=== PATIENT | female | born 1980 | race Hispanic/Latino ===

== ENCOUNTER 2019-05-24 05:03 | Observation (INO) | payer BC ==
[2019-05-23 10:29] LABS: CLARITY,URINE CLEAR (CLEAR); COLOR,URINE YELLOW (YELLOW); KETONES,URINE NEGATIVE (NEGATIVE); LEUKOCYTE ESTERASE ,URINE NEGATIVE (NEGATIVE); NITRITE,URINE NEGATIVE (NEGATIVE); PROTEIN,URINE DIPSTICK NEGATIVE (NEGATIVE)
[2019-05-23 10:30] LABS: BASOPHILS % 0.8 % (0.0-1.0); BILIRUBIN,URINE NEGATIVE (NEGATIVE); EOSINOPHILS # (AUTO) 0.2 (0.0-0.4); EOSINOPHILS % 3.2 % (0.0-6.0); HEMATOCRIT 40.9 % (34.2-44.1); HEMOGLOBIN 13.8 g/dL (12.0-16.0); LYMPHOCYTES # (AUTO) 1.4 (1.0-3.2); LYMPHOCYTES % 28.4 % (18.0-39.1); MEAN CORPUSCULAR HEMOGLOBIN 30.1 pg (28-32); MEAN CORPUSCULAR HGB CONC 33.7 g/dL (31-35); MEAN CORPUSCULAR VOLUME 89.3 fL (81-99); MONOCYTES # (AUTO) 0.4 (0.2-0.8); MONOCYTES % 7.7 % (4.4-11.3); NEUTROPHILS % 59.7 % (38.7-80.0); PLATELET COUNT 193 x10e3/uL (140-360); RED BLOOD COUNT 4.58 x10e6/uL (3.6-5.1); RED CELL DISTRIBUTION WIDTH 11.4 % (11.7-14.4); URINE UROBILINOGEN 0.2 mg/dL (0.2 - 1)
[2019-05-23 10:47] LABS: ALANINE AMINOTRANSFERASE 11 IU/L (0-55); ALBUMIN 3.9 g/dL (3.5-5.0); ALBUMIN/GLOBULIN RATIO 1.4 (0.8-2.0); ALKALINE PHOSPHATASE 64 IU/L (40-150); ANION GAP 8.9 mmol/L (8-16); BLOOD UREA NITROGEN 8 mg/dL (7-26); BUN/CREATININE RATIO 12 (6-25); CALCIUM 8.9 mg/dL (8.4-10.2); CARBON DIOXIDE 28 mmol/L (22-29); CHLORIDE 105 mmol/L (98-107); CREATININE, SERUM 0.68 mg/dL (0.57-1.11); EST GLOMERULAR FILTRATION RATE > 60 ML/MIN (60-); GLUCOSE 84 mg/dL (74-118); POTASSIUM 3.9 mmol/L (3.5-5.1); SODIUM 138 mmol/L (136-145)
--- NOTE | 2019-05-23 10:47 | Diagnostic Imaging Report ---
EXAMINATION: CHEST 2 VIEWS INDICATION: Pre-operative COMPARISON: None FINDINGS: LINES/TUBES:None LUNGS:The lungs are well-inflated. No focal consolidation or pulmonary edema. PLEURA:No pleural effusion or pneumothorax. MEDIASTINUM:The cardiomediastinal silhouette appears normal in size and shape. BONES/SOFT TISSUES:No acute osseous injury. ABDOMEN:No free air under the diaphragm. Status post cholecystectomy. IMPRESSION: No focal pneumonia or pulmonary edema. Signed by: Leslie Ann MD on 05/23/2019 10:45 AM
[2019-05-23 11:19] LABS: FREE THYROXINE INDEX 3.6311 (1.4-3.8); THYROID STIMULATING HORMONE 1.166 uIU/mL (0.350-4.940)
[~2019-05-24] VITALS: Ht 162.6 cm; Wt 71.7 kg
[~2019-05-24 05:03] MED LIST: ATIVAN1 MG; B12; TIROSINT100 MCG; VITAMIN D34000 UNIT
--- OUTSIDE RECORDS SUMMARY | 2019-05-24 05:32 | XMS REPORT ---
Author [facility] Address Unknown Phone Unavailable Care Team Providers Care Singer Back Tender Name Role Phone Joanna CRUZ Unavailable Unavailable Payers Payer Name Policy Type Policy Number Effective Date Expiration Date Problems This patient has no known problems. Allergies, Adverse Reactions, Alerts Allergy Name Allergy Type Status Severity Reaction(s) Onset Date Inactive Date Treating Clinician Comments cephalexin DA Active [place] 2010-08-10 00:00:00 MILK DA Active U 2007-06-01 00:00:00 Medications This patient has no known medications. Results Test Description Test Time Test Comments Text Results Atomic Results Result Comments CHEST 2 VIEWS 2019-05-23 10:44:00 [place] [address] Patient Name: SALLY BURRIS MR #: [id number] : 1980 Age/Sex: 38/F Req #: [id number] Adm Physician: Ordered by: GARCÍA CRUZ MD Report #: [id number] Location: OR Room/Bed: Procedure: [id number] DX/CHEST 2 VIEWS Exam Date: 03/03/20 Exam Time: 1027 REPORT STATUS: Signed EXAMINATION: CHEST 2 VIEWS INDICATION: Pre-operative COMPARISON: None FINDINGS: LINES/TUBES:None LUNGS:The lungs are well-inflated. No focal consolidation or pulmonary edema. PLEURA:No pleural effusion or pneumothorax. MEDIASTINUM:The cardiomediastinal silhouette appears normal in size and shape. BONES/SOFT TISSUES:No acute osseous injury. ABDOMEN:No free air under the diaphragm. Status post cholecystectomy. IMPRESSION: No focal pneumonia or pulmonary edema. Signed by: Hira Ann MD on 05/23/2019 10:45 AM Dictated By: HIRA ANN MD [id number] Transcribed By: RICHARD on 05/23/19 1045 COPY TO: GARCÍA CRUZ MD
[2019-05-24] MEDS ORDERED: CEFOXITIN 1GM/ D5W 50ML 100 ML IV ONE (05:39)
[2019-05-24 08:46] LABS: HIV 1&2 AB SCREEN NON-REACTIVE (NONREACTIVE)
[2019-05-24] MEDS ORDERED: DEXMEDETOMIDINE HCL 2 ML ONE (08:54)
[2019-05-24] MEDS ORDERED: BUPIVACAINE LIPOSOME/PF 266 MG/20 ML IJ ONE (09:34)
[2019-05-24] MEDS ORDERED: BUPIVACAINE HCL 0.5% INJ 30 ML VIAL INJ ONE (09:47)
[2019-05-24] MEDS ORDERED: SIMETHICONE 80 MG CHEW PO PRN (10:30)
[2019-05-24] MEDS ORDERED: ONDANSETRON HCL INJ 2MG/ML 2ML 2 MG/ML VIAL IV PRN (10:30)
[2019-05-24] MEDS ORDERED: DIPHENHYDRAMINE HCL 25 MG CAP PO PRN (10:30)
[2019-05-24] MEDS ORDERED: BISACODYL 10 MG SUPP PR PRN (10:30)
[2019-05-24] MEDS ORDERED: DOCUSATE SODIUM 100 MG CAP PO PRN (10:30)
[2019-05-24] MEDS ORDERED: HYDROMORPHONE 0.2MG/ML-SOD CHL 30ML PCA SYRINGE IV SCH (10:45)
[2019-05-24] MEDS ORDERED: NALOXONE HCL INJ 0.4 MG/ML AMP IV PRN ×2 (10:45→11:15)
[2019-05-24] MEDS ORDERED: FENTANYL CITRATE/PF 100MCG/2 ML INJ ONE ×2 (10:48→18:12)
[2019-05-24] MEDS: HYDROMORPHONE 0.2MG/ML-SOD CHL 30ML PCA SYRINGE IV PRN ×2 (11:20→20:48)
[2019-05-24] MEDS ORDERED: HYDROMORPHONE 1MG/1ML INJ ONE (11:38)
--- NOTE | 2019-05-24 12:30 | NUR ---
RECEIVED TO RM AAOX3 NO DISTRESS NOTED, UPDATED ON POC VOCIED UNDERSTANDING, INSURANCE AUDITOR PUMP AT BEDSIDE PT INSTRUCTED ON USAGE VOICED UNDERSTANDING, JESSICA TO BSD WITH YELLOW URINE NOTED, DENIES PAIN AT THIS TIME, CALL LIGHT IN REACH WILL CONTINUE TO MONITOR
[2019-05-24 12:55] VITALS: BP 125/58
[2019-05-24] MEDS ORDERED: SODIUM CHLORIDE 0.9% 1000ML 1,000 ML ONE (13:23)
[2019-05-24] MEDS: KETOROLAC TROMETHAMINE 30 MG/ML VIAL IM PRN ×2 (13:33→19:50)
[2019-05-24 14:06] VITALS: BP 125/58
[2019-05-24] MEDS ORDERED: SEVOFLURANE INHAL SOLN 250 ML PEN BTL ONE (14:06)
[2019-05-24] MEDS ORDERED: PROPOFOL IV EMULSION 10 MG/ML 20 ML VIAL ONE (14:06)
[2019-05-24] MEDS ORDERED: GLYCOPYRROLATE INJ 0.2 MG/ML VIAL ONE (14:06)
[2019-05-24] MEDS ORDERED: DEXAMETHASONE SOD PHOS INJ 4 MG/ML VIAL ONE (14:06)
[2019-05-24] MEDS ORDERED: LIDOCAINE HCL 2% LOCAL INJ 5 ML SDV VIAL INJ ONE (14:06)
[2019-05-24] MEDS ORDERED: ROCURONIUM BROMIDE 10 MG/ML 5ML VIAL ONE (14:06)
[2019-05-24] MEDS ORDERED: ONDANSETRON HCL INJ 2MG/ML 2ML 2 MG/ML VIAL ONE (14:06)
[2019-05-24] MEDS ORDERED: ACETAMINOPHEN 1000 MG/100 ML IV ONE (14:06)
[2019-05-24] MEDS ORDERED: NEOSTIGMINE 1 MG/ML 10ML VIAL ONE (14:06)
[2019-05-24] MEDS ORDERED: DEXTROSE 5%/LACTATED RINGERS 1,000 ML IV SCH (14:30)
[2019-05-24] MEDS ORDERED: CEFOXITIN 2GM/ D5W 50ML 50 ML IV SCH (15:00)
[2019-05-24] MEDS: CEFOXITIN SODIUM 2 G in SODIUM CHLORIDE 0.9% 50ML 50 ML IV SCH ×2 (15:00→20:58)
[2019-05-24 15:40] VITALS: BP 118/56
--- NOTE | 2019-05-24 17:54 | Operative Report ---
DATE OF PROCEDURE: 05/24/2019 SURGEON: Estrella Person MD PREOPERATIVE DIAGNOSES: A 38-year-old female 4, para 4, status post bilateral tubal ligation and NovaSure with endometrial ablation, now suffering from the chronic pelvic, lower abdominal and low back pain and still has long painful periods and abnormal uterine bleeding, possible adenomyosis. POSTOPERATIVE DIAGNOSES: A 38-year-old female 4, para 4, status post bilateral tubal ligation and NovaSure with endometrial ablation, now suffering from the chronic pelvic, lower abdominal and low back pain and still has long painful periods and abnormal uterine bleeding, possible adenomyosis and possible pelvic endometriosis. PROCEDURES DONE: 1. EUA. 2. Total abdominal hysterectomy. 3. Bilateral salpingectomy and removal of fallopian rings, which were used for tubal ligation. TAN ROOM SUPERVISOR: Dr. Mcconnell. ANESTHESIA: General. FINDINGS: At the time of surgery and EUA, cervix looked normal, but hypertrophic. Uterus slightly enlarged. No adnexal masses felt on laparotomy, possible superficial endometriosis in the cud-de-sac and on the broad ligament on right side. Both ovaries look fine. Both the tubes looked inflamed and have the fallopian rings. Therefore, they are removed and uterus removed along with the cervix and Perez catheter in the bladder draining clear urine. COMPLICATIONS: None. ESTIMATED BLOOD LOSS AROUND: 150 mL. TRANSFUSION: None. SPECIMEN REMOVED: Uterus and both fallopian tubes and Falope rings. COUNTS: Instrument and swab counts were correct. DISPOSITION: The patient is stable in the recovery. URINE: Clear in the Perez bag. PROCEDURE IN DETAIL: The patient brought to the operating room and put in the supine position and general anesthesia was given without any problems. After adequate anesthesia, the patient was examined under anesthesia. The findings are as dictated above, then she was prepped and draped in the routine fashion and proceeded for the surgery. Perez catheter was in the bladder, draining clear urine. I then made a low transverse Pfannenstiel skin incision and taken down to the fascia. The fascia opened in a transverse fashion. Recti muscle longitudinal, identified the parietal peritoneum, opened and entered the abdominal cavity without any problems. Then, O'Vince-O'Besnon retractor placed in the incision for better exposer and pack the bowels up and put in the upper bed and then the lower bed. The uterus is slightly enlarged to about 10 to 12 weeks size. Both ovaries looked normal. Both the tubes, they have the Falope rings and looked inflamed. Therefore, planned to remove both the tubes and the uterus and proceeded with the surgery. Round ligaments on either side clamped with a LigaSure, cauterized and cut. Then, the bladder flap of the peritoneum opened in the midline and extended all the way up to the stumps of the round ligaments and dissected down the bladder and it went down very well. I then clamped the ovarian ligament and the tube and brought out broad ligament on either side with the LigaSure, cauterized, and cut. The tube was looking unhealthy. Therefore, right side tube clamped below with mesosalpinx and cauterized and cut and removed the tubes on either side and sent for the Pathology. Then, dissected the posterior peritoneum and pushed it down. The bladder went down very well. The ureters were far away. Uterine vessels on either side clamped with LigaSure, cauterized twice, and cut. The hemostasis was satisfactory. Then onwards, used the sutures not LigaSure anymore. Cardinal ligaments on either side clamped closed to the uterus, cut towards the uterus and suture ligated using 1-0 Vicryl. Suture tight snug and cut short. The cardinal ligament was elongated, they had to take 2 bites on either side. Then, I dissected the bladder from the cervix and made sure it went down in the back. The bowel was far off and ureters were away. Then, I placed the right angle clamp on either side below the cervix, very close to the uterus and cervix, and cut towards uterus, we were into the vaginal vault on the both sides. Then, cut the anterior vaginal wall and posterior vaginal wall and removed the uterus and sent for the Pathology. The vaginal vault held with the Lenin clamps and placed the angle stitches with #1 Vicryl with the transfixation suture, suture tight snug and held along with a hemostat and rest of the vaginal vault closed with [id number] sutures using #1 Vicryl, sutures tight snug and cut short. Then, after anchoring the stumps of the uterosacral ligament into the vaginal vault, all the sutures cut short and checked for the hemostasis and there was little bleeding from the vaginal cuff on the right side that was secured with figure of eight stitch using #1 Vicryl, suture tight snug and cut short. After making sure the hemostasis is good, injected 5 mL local into the vaginal vault and then irrigated the pelvis. Thre was no active bleeding from anywhere. The urine was clear in the Perez bag. The ureters looked normal. Then, all the laps and instruments removed from the abdominal incision. The instrument and swab counts were correct and closed the parietal peritoneum with 2-0 Vicryl with continuous stitches and then the fascia was closed with 1 Vicryl using two stitches, starting at the corners and ending in the midline. Sutures tight snug and cut short, then injected the rest of the local 15 mL into the abdominal incision. Then, irrigated again and subcutaneous tissue approximated with 3-0 Vicryl with continuous stitches and skin approximated with 4-0 Vicryl using subcuticular stitches. The patient tolerated the procedure well. There were no complications. Estimated blood loss around 150 mL. Urine clear in the Perez bag and the patient moved to the recovery room a stable condition. Then, Marcaine about 15 mL injected into the skin for the postop pain relief 2% without. Estrella Person MD NR/MODL /[id number]
[2019-05-24] MEDS ORDERED: MIDAZOLAM HCL 2 MG/2 ML VIAL ONE (18:12)
--- NOTE | 2019-05-24 18:45 | NUR ---
RECEIVED REPORT FROM PREVIOUS NURSE. CALL LIGHT WITHIN REACH. PATIENT IN BED. MOTHER AT BEDSIDE. WILDLAND FIRE FIGHTER SPECIALIST PUMP AND JESSICA DRAINING WELL
[2019-05-24 19:43] VITALS: BP 118/56
[2019-05-24 20:00] VITALS: BP 119/61
[2019-05-24 20:12] VITALS: BP 119/67
[2019-05-24] MEDS ORDERED: ZOLPIDEM TARTRATE 5 MG TAB PO PRN (21:00)
[2019-05-25] VITALS: BP 108/59
[2019-05-25] MEDS: KETOROLAC TROMETHAMINE 30 MG/ML VIAL IM PRN ×2 (02:39→09:54)
[2019-05-25] MEDS: CEFOXITIN SODIUM 2 G in SODIUM CHLORIDE 0.9% 50ML 50 ML IV SCH ×3 (02:40→15:00)
[2019-05-25 04:00] VITALS: BP 112/64
--- NOTE | 2019-05-25 05:02 | NUR ---
PATIENT WAS CLEANED IN THE PERINEAL AREA AND JESSICA WAS TAKEN OUT. URINE WAS DARK AMANDA AND PATIENT URINATED RIGHT AFTER JESSICA WAS REMOVED
[2019-05-25 06:26] LABS: BASOPHILS % 0.2 % (0.0-1.0); EOSINOPHILS % 0.3 % (0.0-6.0); HEMATOCRIT 34.2 % (34.2-44.1); HEMOGLOBIN 11.3 g/dL (12.0-16.0); LYMPHOCYTES # (AUTO) 1.6 (1.0-3.2); MEAN CORPUSCULAR HEMOGLOBIN 30.4 pg (28-32); MEAN CORPUSCULAR VOLUME 91.9 fL (81-99); MONOCYTES # (AUTO) 0.8 (0.2-0.8); MONOCYTES % 9.1 % (4.4-11.3); NEUTROPHILS # (AUTO) 6.2 (2.1-6.9); NEUTROPHILS % 72.1 % (38.7-80.0); PLATELET COUNT 137 x10e3/uL (140-360); RED BLOOD COUNT 3.72 x10e6/uL (3.6-5.1); RED CELL DISTRIBUTION WIDTH 11.4 % (11.7-14.4)
[2019-05-25 06:43] LABS: BLOOD UREA NITROGEN 7 mg/dL (7-26); BUN/CREATININE RATIO 10 (6-25); CALCIUM 8.2 mg/dL (8.4-10.2); CARBON DIOXIDE 29 mmol/L (22-29); CHLORIDE 105 mmol/L (98-107); CREATININE, SERUM 0.67 mg/dL (0.57-1.11); EST GLOMERULAR FILTRATION RATE > 60 ML/MIN (60-); GLUCOSE 117 mg/dL (74-118); SODIUM 136 mmol/L (136-145)
--- NOTE | 2019-05-25 07:20 | NUR ---
GAVE REPORT TO ONCOMING NURSE. CALL LIGHT WITHIN REACH. PATIENT IN BED. MOM AT BEDSIDE. PATIENT WENT TO THE BATHROOM AND URINATED
[2019-05-25 07:37] VITALS: BP 115/64
[2019-05-25 08:19] VITALS: BP 115/64
[2019-05-25] MEDS ORDERED: IBUPROFEN 600 MG TAB PO PRN (09:45)
[2019-05-25 11:27] VITALS: BP 138/64
[2019-05-25] MEDS: HYDROCODONE/APAP 5MG-325MG TAB PO PRN ×2 (11:34→15:18)
[2019-05-25 15:46] VITALS: BP 130/60
--- NOTE | 2019-05-25 19:00 | NUR ---
RECEIVED REPORT FROM PREVIOUS NURSE. CALL LIGHT WITHIN REACH. PATIENT READY FOR DISCHARGE.
--- NOTE | 2019-05-25 19:44 | NUR ---
Patient was given discharge instructions and prescriptions. The patient, , and mother understood and had no questions. They collected all the belongings and the patient was wheelchaired to her chair with all her belongings. The day shift nurse took out her IV with the tip intact.
== END 2019-05-25 19:43 | disposition home or self-care (01) ==
LOC: OR 05:03 → PACU V 10:35 → MED/SURG 12:16
PROVIDERS: ADMIT Specialist; ATTEND Specialist
DX: N80.0 Endometriosis of uterus (principal); Q50.5 Embryonic cyst of broad ligament; N80.3 Endometriosis of pelvic peritoneum; Z01.810 Encounter for preprocedural cardiovascular examination; Z01.812 Encounter for preprocedural laboratory examination; Z01.811 Encounter for preprocedural respiratory examination; Z88.1 Allergy status to other antibiotic agents; Z88.8 Allergy status to other drugs, medicaments and biological substances; E03.9 Hypothyroidism, unspecified; Z87.440 Personal history of urinary (tract) infections; Z87.442 Personal history of urinary calculi; I34.1 Nonrheumatic mitral (valve) prolapse; F41.9 Anxiety disorder, unspecified; F32.9 Major depressive disorder, single episode, unspecified
CPT/HCPCS: 36415 ×2; 58150; 71046; 80048; 80053; 81003; 82948; 84436; 84443; 84479; 84702; 85025 ×2; 86850; 86900; 87390; 88307; 93005; C9290; G0378 ×2; G0433; G0435; J0131; J0694 ×2; J1100; J1170; J1885 ×2; J2001; J2250; J2405; J2704; J2710; J3010; J7030; J7121 ×2